=== PATIENT | female | born 1960 | race Caucasian/White ===

== ENCOUNTER 2017-01-28 11:14 | Emergency (ER) | payer BC ==
[2017-01-28] MEDS ORDERED: Diltiazem 25 MG/5 ML SDV IVPUSH ONE (11:29)
[2017-01-28] MEDS ORDERED: Diltiazem 100 MG in Sodium Chloride 0.9% 100 ML IV SCH (12:15)
[2017-01-28] MEDS ORDERED: Acetaminophen 500 MG Tab PO ONE (13:01)
--- NOTE | 2017-01-28 13:18 | EDM.PDOC ---
ED HISTORY OF PRESENT ILLNESS - General Chief Complaint: Cardiovascular Problem Stated Complaint: RAPID HEART RATE Time Seen by Provider: 01/28/17 11:26 Source of Information: Reports: Patient History Limitations: Reports: No limitations - History of Present Illness INITIAL COMMENTS - FREE TEXT/NARRATIVE: Patient states that she started to notice chest palpitations 3 days ago and feelings of her heart racing. She has been having intermittent fever and chills with dysuria for the last 7 days. These complaints have started to get worse. Symptom Onset Date: 01/25/17 Symptom Onset Time: 09:00 Timing/Duration: Reports: Day(s): (7) Severity: moderate Location, General: Reports: head, chest, generalized (muscle pain and headache) Quality: Reports: Ache Improves with: Reports: None Worsens with: Reports: Movement Context, General: Reports: Activity, Exercise Associated Symptoms (General): Reports: cough, fever/chills, headaches, malaise , weakness Other Treatments HAND WEAVER: none - Related Data Allergies/ADRs: Allergies Allergy/AdvReac Type Severity Reaction Status Date / Time No Known Allergies Allergy Verified 01/28/17 11:29 Home Meds: Home Meds Ciprofloxacin [Ciprofloxacin HCl] 500 mg PO BID #10 tablet 01/28/17 [Rx] Diltiazem HCl [Cardizem LA] 120 mg PO DAILY #10 tab.sr.24h 01/28/17 [Rx] Past Medical History Psychiatric History: Reports: Addiction Other Psychiatric History: hx of etoh abuse Endocrine/Metabolic History: Reports: Hyperthyroidism - Past Surgical History Musculoskeletal Surgical History: Reports: Other (see below) Other Musculoskeletal Surgeries/Procedures:: knee surgery Social & Family History - Tobacco Use Smoking Status *Q: Unknown Ever Smoked - Alcohol Use Days Per Week of Alcohol Use: 1 Number of Drinks Per Day: 2 Total Drinks Per Week: 2 - Recreational Drug Use Recreational Drug Use: No ED ROS GENERAL - Review of Systems Review Of Systems: ROS reveals no pertinent complaints other than HPI. Constitutional: Reports: fever, chills, malaise, weakness, fatigue, night sweats HEENT: Reports: Rhinitis Respiratory: Reports: Cough Cardiovascular: Reports: Palpitations Endocrine: Reports: fatigue GI/Abdominal: Reports: No symptoms : Reports: dysuria, pain Musculoskeletal: Reports: muscle pain, muscle stiffness Skin: Reports: no symptoms Neurological: Reports: No Symptoms Psychiatric: Reports: No symptoms Hematologic/Lymphatic: Reports: no symptoms Immunologic: Reports: no symptoms ED EXAM, GENERAL - Physical Exam Exam: See Below Exam Limited By: No limitations General Appearance: alert, WD/WN, anxious, mild distress Ears: normal external exam, normal canal, hearing grossly normal, normal TMs Nose: normal inspection, normal mucosa, no blood Throat/Mouth: Normal inspection, Normal lips, Normal teeth, Normal gums, Normal oropharynx, Normal voice, No airway compromise Head: atraumatic, normocephalic Neck: normal inspection, supple, non-tender, full range of motion Respiratory/Chest: no respiratory distress, lungs clear, normal breath sounds, no accessory muscle use, chest non-tender Cardiovascular: tachycardia, irregularly irregular Peripheral Pulses: 2+: radial (L), radial (R) GI/Abdominal: normal bowel sounds, soft, non tender, no organomegaly, no distention, no abnormal bruit, no mass Back Exam: normal inspection, full range of motion, NT Extremities: normal inspection Neurological: alert, oriented, CN II-XII intact, normal cognition, normal gait, normal reflexes, no motor/sensory deficits Psychiatric: normal affect, normal mood Skin Exam: Dry, Intact, Normal color, No rash, Other (Hot to touch) Lymphatic: no adenopathy EKG INTERPRETATION Rhythm: NSR [place]: normal P-wave: present QRS: normal ST-T: normal QT: normal Course - Vital Signs Last Recorded V/S: Last Vital Signs Temp 38.2 C H 01/28/17 12:35 Pulse 139 H 01/28/17 12:37 Resp 20 01/28/17 11:45 BP 104/69 01/28/17 12:37 Pulse Ox 97 01/28/17 11:45 - Orders/Labs/Meds Orders: Active Orders 24 hr Category Date Time Status CXR [Chest 2V] [CR] Stat Exams 01/28/17 11:56 Ordered CULTURE BLOOD [BC] Stat Lab 01/28/17 11:58 Ordered CULTURE BLOOD [BC] Stat Lab 01/28/17 11:58 Ordered Diltiazem [Cardizem] 100 mg Med 01/28/17 12:15 Ordered Sodium Chloride 0.9% [Normal Saline] 100 ml IV TITRATE Blood Culture x2 Reflex Set [OM.PC] Stat Oth 01/28/17 11:58 Ordered Medication Orders Diltiazem HCl 100 mg/ Sodium (Chloride) 100 mls @ 10 mls/hr IV TITRATE MARIAH; 10 MG/HR PRN Reason: Protocol Last Admin: 01/28/17 12:37 Dose: 10 mls/hr Labs: Laboratory Tests 01/28/17 01/28/17 01/28/17 Range/Units 11:37 11:37 11:37 WBC 26.9 H* (4.0-10.0) x10^3/uL RBC 3.18 L (4.00-5.50) x10^6/uL Hgb 10.5 L (12.0-16.0) g/dL Hct 31.2 L (33.0-47.0) % MCV 98.1 H (78.0-93.0) fL MCH 33.0 H (26.0-32.0) pg MCHC 33.7 (32.0-36.0) g/dL RDW Coeff of Pao 13.7 (10.0-15.0) % Plt Count 653 H (130-400) x10^3/uL Add Manual Diff Yes Neutrophils % (Manual) 89 H (50-80) % Band Neutrophils % 1 (0-6) % Lymphocytes % (Manual) 7 L (25-50) % Monocytes % (Manual) 1 L (2-11) % Eosinophils % (Manual) 1 (0-4) % Metamyelocytes % 1 H (0) % Platelet Estimate Marked inc H Sodium 138 (136-145) mmol/L Potassium 3.6 (3.5-5.1) mmol/L Chloride 100 (98-107) mmol/L Carbon Dioxide 28 (21-32) mmol/L BUN 18 (7-18) mg/dL Creatinine 1.2 H (0.55-1.02) mg/dL Est Cr Clr Drug Dosing 45.74 mL/min Estimated GFR (MDRD) 46 Glucose 135 H (74-106) mg/dL Lactic Acid 1.3 (0.4-2.0) mmol/L Calcium 9.2 (8.5-10.1) mg/dL Corrected Calcium 10.32 H (8.5-10.1) mg/dL Total Bilirubin 0.6 (0.2-1.0) mg/dL AST 13 L (15-37) U/L ALT 19 (14-59) U/L Alkaline Phosphatase 135 H (46-116) U/L Total Protein 7.3 (6.4-8.2) g/dL Albumin 2.6 L (3.4-5.0) g/dL Globulin 4.7 Albumin/Globulin Ratio 0.55 TSH, Ultra Sensitive 5.103 H (0.358-3.74) uIU/mL Urine Color (YELLOW) Urine Appearance (CLEAR) Urine pH (5.0-8.0) Ur Specific Lucas Urine Protein (NEGATIVE) mg/dL Urine Glucose (UA) (NEGATIVE) mg/dL Urine Ketones (NEGATIVE) mg/dL Urine Occult Blood (NEGATIVE) Urine Nitrite (NEGATIVE) Urine Bilirubin (NEGATIVE) Urine Urobilinogen (0.2) EU/dL Ur Leukocyte Esterase (NEGATIVE) Urine RBC (NOT SEEN) /HPF Urine WBC (NOT SEEN) /HPF Urine WBC Clumps Ur Squamous Epith Cells (NEGATIVE) /HPF Amorphous Sediment Urine Bacteria (NEGATIVE) /HPF Urine Mucus (NEGATIVE) /LPF 01/28/17 Range/Units 12:42 WBC (4.0-10.0) x10^3/uL RBC (4.00-5.50) x10^6/uL Hgb (12.0-16.0) g/dL Hct (33.0-47.0) % MCV (78.0-93.0) fL MCH (26.0-32.0) pg MCHC (32.0-36.0) g/dL RDW Coeff of Pao (10.0-15.0) % Plt Count (130-400) x10^3/uL Add Manual Diff Neutrophils % (Manual) (50-80) % Band Neutrophils % (0-6) % Lymphocytes % (Manual) (25-50) % Monocytes % (Manual) (2-11) % Eosinophils % (Manual) (0-4) % Metamyelocytes % (0) % Platelet Estimate Sodium (136-145) mmol/L Potassium (3.5-5.1) mmol/L Chloride (98-107) mmol/L Carbon Dioxide (21-32) mmol/L BUN (7-18) mg/dL Creatinine (0.55-1.02) mg/dL Est Cr Clr Drug Dosing mL/min Estimated GFR (MDRD) Glucose (74-106) mg/dL Lactic Acid (0.4-2.0) mmol/L Calcium (8.5-10.1) mg/dL Corrected Calcium (8.5-10.1) mg/dL Total Bilirubin (0.2-1.0) mg/dL AST (15-37) U/L ALT (14-59) U/L Alkaline Phosphatase (46-116) U/L Total Protein (6.4-8.2) g/dL Albumin (3.4-5.0) g/dL Globulin Albumin/Globulin Ratio TSH, Ultra Sensitive (0.358-3.74) uIU/mL Urine Color Yellow (YELLOW) Urine Appearance Turbid H (CLEAR) Urine pH 7.0 (5.0-8.0) Ur Specific Lucas 1.015 Urine Protein 30 H (NEGATIVE) mg/dL Urine Glucose (UA) Negative (NEGATIVE) mg/dL Urine Ketones Negative (NEGATIVE) mg/dL Urine Occult Blood Small H (NEGATIVE) Urine Nitrite Negative (NEGATIVE) Urine Bilirubin Negative (NEGATIVE) Urine Urobilinogen 0.2 (0.2) EU/dL Ur Leukocyte Esterase Small H (NEGATIVE) Urine RBC 0-5 (NOT SEEN) /HPF Urine WBC 40-50 H (NOT SEEN) /HPF Urine WBC Clumps Moderate Ur Squamous Epith Cells Not seen (NEGATIVE) /HPF Amorphous Sediment Few Urine Bacteria Moderate H (NEGATIVE) /HPF Urine Mucus Rare H (NEGATIVE) /LPF Meds: Medications Generic Name Dose Route Start Last Admin Trade Name Freq PRN Reason Stop Dose Admin Diltiazem HCl 100 mg/ Sodium 100 mls @ 10 mls/hr 01/28/17 12:15 01/28/17 12: 37 Chloride IV 10 mls/hr TITRATE MARIAH Administration Protocol 10 MG/HR Discontinued Medications Generic Name Dose Route Start Last Admin Trade Name Freq PRN Reason Stop Dose Admin Acetaminophen 1,000 mg 01/28/17 13:01 Tylenol Extra Strength PO 01/28/17 13:02 ONETIME ONE Diltiazem HCl 20 mg 01/28/17 11:29 01/28/17 11:41 Diltiazem IVPUSH 01/28/17 11:30 20 mg ONETIME ONE Administration Departure - Departure Time of Disposition: 15:00 Disposition: Home, Self-Care 01 Condition: good Clinical Impression: UTI (urinary tract infection), bacterial, Atrial fibrillation with RVR, Fever and chills, Neutrophilia Instructions: Atrial Fibrillation, [id number], Dysuria Forms: ED Department Discharge Additional Instructions: Followup primary care provider on at 10 AM. An appointment has been made for you with Dr. FRYE. Please take medications as prescribed. If you have chest pain, shortness of breath, or palpitations please return to the ER or clinic for further assessment. ED Communication - Discussed Case With (1) Discussed Case With (1): Outpatient Provider Person/s Notified (1): Nasima Frye (She will f/u with the pt in 2 days) - Problem List Review Problem List Initiated/Reviewed/Updated: Yes - My Orders Last 24 Hours: My Active Orders 01/28/17 11:56 CXR [Chest 2V] [CR] Stat 01/28/17 11:58 CULTURE BLOOD [BC] Stat CULTURE BLOOD [BC] Stat Blood Culture x2 Reflex Set [OM.PC] Stat 01/28/17 12:15 Diltiazem [Cardizem] 100 mg Sodium Chloride 0.9% [Normal Saline] 100 ml IV TITRATE - Assessment/Plan Last 24 Hours: My Active Orders 01/28/17 11:56 CXR [Chest 2V] [CR] Stat 01/28/17 11:58 CULTURE BLOOD [BC] Stat CULTURE BLOOD [BC] Stat Blood Culture x2 Reflex Set [OM.PC] Stat 01/28/17 12:15 Diltiazem [Cardizem] 100 mg Sodium Chloride 0.9% [Normal Saline] 100 ml IV TITRATE
[2017-01-28] MEDS ORDERED: Ciprofloxacin in D5W 400 MG in Premix Bag 1 BAG IV ONE ×2 (13:33)
[2017-01-28] MEDS ORDERED: Sodium Chloride 0.9% 1,000 ML IV ONE (14:50)
[2017-01-28 16:43] VITALS: BP 93/52
== END 2017-01-28 15:55 | disposition home or self-care (01) ==
LOC: VM.ED 11:14
DX: N39.0 Urinary tract infection, site not specified (principal); B96.89 Other specified bacterial agents as the cause of diseases classified elsewhere; I48.91 Unspecified atrial fibrillation; D72.0 Genetic anomalies of leukocytes; E05.90 Thyrotoxicosis, unspecified without thyrotoxic crisis or storm; Z98.890 Other specified postprocedural states; Z79.899 Other long term (current) drug therapy
CPT/HCPCS: 36415; 71020; 80053; 81001; 83605; 84443; 85025; 87040; 87804; 93005; 96361; 96365; 96367; 96375; 99285; A9270; J0744; J7030; J7050; J3490

== ENCOUNTER 2017-03-17 08:20 | Day surgery (SDC) | payer BC ==
[~2017-03-17 08:20] MED LIST: Lactated Ringers 1,000 ML IV SCH; Sodium Chloride 0.9% 10 ML Syringe FLUSH PRN
[2017-03-17] MEDS ORDERED: Propofol 200 MG/20 ML SDV ONE ×3 (09:10→10:22)
[2017-03-17] MEDS ORDERED: fentaNYL 100 MCG/2 ML SDV ONE (09:10)
[2017-03-17 11:58] VITALS: BP 134/83
--- NOTE | 2017-03-18 07:43 | OR ---
PREOPERATIVE DIAGNOSIS: Anemia. POSTOPERATIVE DIAGNOSIS: Anemia. PROCEDURE PERFORMED: Colonoscopy with polypectomy at 20 cm. INDICATION: The patient is a 56-year-old female, who presents for colonoscopy for further evaluation of anemia. PROCEDURE IN DETAIL: The patient was brought to the endoscopy suite. Sedation was given per Anesthesia. She was placed in left lateral position. First, a rectal exam was otherwise normal. Scope was introduced through the rectum, slowly advanced through the rectum, sigmoid, descending, transverse, and ascending colon until the cecum was reached. Upon reaching the cecum, scope was slowly withdrawn looking at all mucosal surfaces on the way out. No mucosal abnormalities, lesions, or polyps were noted except for 1 small polyp at 20 cm, which was removed by hot looped forceps. After this was removed, the remainder of the exam was normal. FINAL DIAGNOSIS: One polyp at 20 cm, pathology pending. BKD: 03/17/2017 10:38:14 MODL: 03/17/2017 21:05:31 /[id number]
== END 2017-03-17 11:50 | disposition home or self-care (01) ==
LOC: VM.SDS 08:20
PROVIDERS: ATTEND Surgery
DX: D12.6 Benign neoplasm of colon, unspecified (principal); E03.9 Hypothyroidism, unspecified; Z98.890 Other specified postprocedural states; Z79.899 Other long term (current) drug therapy; F41.8 Other specified anxiety disorders; F10.20 Alcohol dependence, uncomplicated
CPT/HCPCS: 45380; J2704; J3010; J7120